=== PATIENT | male | born 1980 | race American Indian/Alaskan Native ===

== ENCOUNTER 2016-11-22 04:38 | Emergency (ER) | payer OTHER ==
--- NOTE | 2016-11-22 05:51 | XRay Report ---
FINAL REPORT PROCEDURE: XR FOREARM RT TECHNIQUE: RIGHT forearm radiographs, AP and lateral views. CPT 16977 HISTORY: PAIN /cut possible f.b COMPARISON: No prior studies are available for comparison. FINDINGS: Fracture (s) and/or Dislocation(s): None . Joint space(s): Normal . Soft tissues: There is focal soft tissue swelling of the forearm. There is no foreign body or mass.. Bone mineralization: Normal . Foreign bodies: None . IMPRESSION: There is no acute bony abnormality. There is focal soft tissue swelling of the forearm. There is no foreign body or mass..
--- NOTE | 2016-11-22 06:00 | XRay Report ---
FINAL REPORT PROCEDURE: XR HAND 2V RT TECHNIQUE: Right hand radiographs, AP, lateral, and oblique views. CPT 71966 HISTORY: PAIN of rt hand COMPARISON: No prior studies are available for comparison. FINDINGS: Fracture (s) and/or Dislocation(s): There is an intra-articular fracture of the distal portion of the 2nd metacarpal bone.. Alignment: Normal . Joint space(s): Normal . Soft tissues: Normal . Bone mineralization: Normal . Foreign bodies: None . There irregularity of the 5th metacarpal bones suggesting old healed fracture. IMPRESSION: There is an intra-articular fracture of the distal portion of the 2nd metacarpal bone.. There is no joint dislocation..
[2016-11-22] MEDS ORDERED: NORCO 7.5/325 PO ONE (07:23)
[2016-11-22] MEDS ORDERED: TORADOL IM ONE (07:23)
[2016-11-22] MEDS ORDERED: FLEXERIL PO ONE (07:23)
[2016-11-22] MEDS ORDERED: BOOSTRIX IM ONE (07:49)
--- NOTE | 2016-11-22 07:49 | Emergency Department Report ---
ED Upper Extremity Inj HPI - General Chief Complaint: Extremity Injury, Upper Stated Complaint: RT HAND AND ARM INJURY Source: patient Mode of arrival: Ambulatory Limitations: No Limitations - History of Present Illness Initial Comments: 35 year old male presents to ED after mechanical fall down stairs. patient states he has right hand pain and right forearm pain. patient denies trauma to head, LOC, neck pain, back pain. patient is stable, neurologically intact and in no acute distress. MD Complaint: Injury to:: right, forearm, hand -: Sudden Other Extremity Injury: Hand: Right, Forearm: Right Other Injuries: none Place: work Improves With: immobilization Worsens With: movement of extremity Context: fall Associated Symptoms: denies other symptoms - Related Data Previous Rx's Medication Instructions Recorded Last Taken Type HYDROcodone/APAP 5-325 [[place] 1 each PO Q6HR PRN #12 tablet 11/22/16 Unknown Rx 5/325] Ketorolac [Toradol] 10 mg PO Q6H PRN #20 tablet 11/22/16 Unknown Rx methOCARBAMOL [Robaxin TAB] 500 mg PO BID #20 tab 11/22/16 Unknown Rx Allergies Allergy/AdvReac Type Severity Reaction Status Date / Time No Known Allergies Allergy Verified 03/08/15 03:07 ED Review of Systems ROS: Stated complaint: RT HAND AND ARM INJURY Other details as noted in HPI Constitutional: denies: chills, fever Eyes: denies: eye pain, eye discharge, vision change ENT: denies: ear pain, throat pain Respiratory: denies: cough, shortness of breath, wheezing Cardiovascular: denies: chest pain, palpitations Endocrine: no symptoms reported Gastrointestinal: denies: abdominal pain, nausea, diarrhea Genitourinary: denies: urgency, dysuria Musculoskeletal: joint swelling, arthralgia, myalgia. denies: back pain Skin: denies: rash, lesions Neurological: denies: headache, weakness, paresthesias Psychiatric: denies: anxiety, depression Hematological/Lymphatic: denies: easy bleeding, easy bruising ED Past Medical Hx - Past Medical History Previous Medical History?: No - Surgical History Past Surgical History?: Yes Additional Surgical History: RIGHT HAND FX 2001 - Social History Smoking Status: Never Smoker Substance Use Type: Alcohol - Medications Home Medications: Home Medications Medication Instructions Recorded Confirmed Last Taken Type HYDROcodone/APAP 5-325 [[place] 1 each PO Q6HR PRN #12 tablet 11/22/16 Unknown Rx 5/325] Ketorolac [Toradol] 10 mg PO Q6H PRN #20 tablet 11/22/16 Unknown Rx methOCARBAMOL [Robaxin TAB] 500 mg PO BID #20 tab 11/22/16 Unknown Rx ED Physical Exam - General Limitations: No Limitations General appearance: alert, in no apparent distress - Head Head exam: Present: atraumatic, normocephalic - Eye Eye exam: Present: normal appearance, PERRL, EOMI - ENT ENT exam: Present: normal exam, mucous membranes moist - Neck Neck exam: Present: normal inspection, full ROM. Absent: tenderness - Respiratory Respiratory exam: Present: normal lung sounds bilaterally. Absent: respiratory distress, wheezes, chest wall tenderness - Cardiovascular Cardiovascular Exam: Present: regular rate, normal rhythm. Absent: systolic murmur, diastolic murmur, rubs, gallop - GI/Abdominal GI/Abdominal exam: Present: soft, normal bowel sounds. Absent: tenderness, guarding - Rectal Rectal exam: Present: deferred - Extremities Exam Extremities exam: Present: normal inspection - Expanded Upper Extremity Exam Right Shoulder Exam: Present: normal inspection Upper Arm exam: Present: normal inspection Elbow exam: Present: normal inspection Forearm Wrist exam: Present: full ROM, tenderness, abrasion (2cm abrasion present over medial distal forearm. bleeding well controlled.). Absent: laceration Hand Wrist exam: Present: tenderness, swelling. Absent: laceration, dislocation Neuro motor exam: Present: wrist extension intact Neurosensory exam: Present: 2-point discrimination Vascular: Present: normal capillary refill, radial pulse. Absent: vascular compromise - Back Exam Back exam: Present: normal inspection, full ROM. Absent: tenderness - Neurological Exam Neurological exam: Present: alert, oriented X3, CN II-XII intact, normal gait - Psychiatric Psychiatric exam: Present: normal affect, normal mood - Skin Skin exam: Present: warm, dry, intact, normal color. Absent: rash ED Course Vital Signs 11/22/16 04:47 Temperature 98.2 F Pulse Rate 75 Respiratory 20 Rate Blood Pressure 115/83 O2 Sat by Pulse 97 Oximetry ED Medical Decision Making - Radiology Data Radiology results: report reviewed Xr forearm: There is focal soft tissue swelling of the forearm. There is no foreign body or mass. No fracture or dislocation. Xr hand right There is an intra-articular fracture of the distal portion of the 2nd metacarpal bone. There is no joint dislocation. - Medical Decision Making 35 year old male presents to ED with right 2nd distal metacarpal fracture with no dislocation present. patient was placed in radial gutter splint and understands and agrees to follow up with his orthopedist Dr. More within 24-48 hours. patient has personal orthopedist from previous hand fracture in 2001 and wants to follow up with his own orthopedist. patient is stable,neurologically intact and in no acute distress. Critical care attestation.: If time is entered above; I have spent that time in minutes in the direct care of this critically ill patient, excluding procedure time. ED Disposition Clinical Impression: Closed hand fracture Qualifiers: Encounter type: initial encounter Laterality: right Qualified Code(s): S62.91XA - Unspecified fracture of right wrist and hand, initial encounter for closed fracture Disposition: DC-01 TO HOME OR SELFCARE Is pt being admited?: No Does the pt Need Aspirin: No Condition: Stable Instructions: Hand Fracture (ED) Additional Instructions: Please follow up with Dr. More your orthopedist within 24-48 hours. Prescriptions: HYDROcodone/APAP 5-325 [[place] 5/325] 1 each PO Q6HR PRN #12 tablet PRN Reason: Pain Ketorolac [Toradol] 10 mg PO Q6H PRN #20 tablet PRN Reason: Pain methOCARBAMOL [Robaxin TAB] 500 mg PO BID #20 tab Referrals: PRIMARY CARE,MD [Primary Care Provider] - 24 Hours (Please follow up with Dr. More, your orthopedist, within 24-48 hours) Forms: Work/School Release Form(ED)
[2016-11-22 08:44] VITALS: BP 125/84
== END 2016-11-22 08:44 | disposition home or self-care (01) ==
LOC: ED 04:38
DX: S62.390A Other fracture of second metacarpal bone, right hand, initial encounter for closed fracture (principal); W10.8XXA Fall (on) (from) other stairs and steps, initial encounter; Y93.89 Activity, other specified; Y99.8 Other external cause status; Y92.89 Other specified places as the place of occurrence of the external cause
CPT/HCPCS: 29125; 73090; 73120; 90471; 90715; 96372; 99284; J1885

== ENCOUNTER 2017-11-07 14:21 | Emergency (ER) | payer SELFPAY ==
[2017-11-07] MEDS ORDERED: MOTRIN PO ONE (14:50)
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
[2017-11-07 15:19] VITALS: BP 126/68
== END 2017-11-07 15:17 | disposition home or self-care (01) ==
LOC: ED 14:21
DX: S61.552A Open bite of left wrist, initial encounter (principal); W50.3XXA Accidental bite by another person, initial encounter; Y93.89 Activity, other specified; Y92.89 Other specified places as the place of occurrence of the external cause; Y99.8 Other external cause status
CPT/HCPCS: 99282